=== PATIENT | female | born 1955 | race African-American/Black ===

== ENCOUNTER 2016-09-03 10:27 | Observation (INO) | payer OTHER ==
[~2016-09-03] VITALS: Ht 160 cm; Wt 78.3 kg
[~2016-09-03 10:27] MED LIST: FLEXERIL10 MG PO; LEVAQUIN750 MG PO; NAPROSYN500 MG PO; PREDNISONE10 MG PO; TRAMADOL HCL50 MG PO; VALIUM5 MG PO
[2016-09-03 11:24] LABS: EOSINOPHIL (%) 1.1 % (0-5); EOSINOPHIL COUNT 0.1 K/uL (0-0.3); HEMATOCRIT 43.2 % (36.0-46.0); IMMATURE GRANULOCYTE (%) 0.3 % (0.0-0.7); IMMATURE GRANULOCYTE COUNT 0.2 K/uL; LYMPHOCYTE COUNT 2.8 K/uL (1.0-2.8); MCH 29.5 PG (29.0-34.0); MCHC 33.1 G/DL (30.0-36.0); MCV 89.3 FL (83-99); MEAN PLAT.VOLUME 9.7 uM^3 (9.5-12.4); MONOCYTE (%) 7.4 % (3-12); MONOCYTE COUNT 0.5 K/uL (0-0.8); NEUTROPHIL COUNT 3.2 K/uL (1.8-6.4); PLATELET COUNT 250 K/uL (156-360); RBC DIS.WIDTH-CV 13.8 % (11.8-14.6); RBC DIS.WIDTH-SD 44.2 % (39-53); RED BLOOD COUNT 4.84 M/uL (3.80-5.20); WHITE BLOOD COUNT 6.5 K/uL (4.1-10.2)
[2016-09-03 11:34] LABS: CHLORIDE 110 mEq/L (99-109); POTASSIUM 4.2 mEq/L (3.7-5.4); SODIUM 141 mEq/L (136-147)
[2016-09-03 11:36] LABS: GLUCOSE 91 mg/dL (70-99)
[2016-09-03 11:37] LABS: ANION GAP 9 MEQ/L (2-14)
[2016-09-03 11:40] LABS: GFR ESTIMATE (CALCULATED) > 59 mL/min/
[2016-09-03 11:41] LABS: UREA NITROGEN (BUN) 14 mg/dL (9-23)
[2016-09-03 11:48] LABS: TROP-I INTERPRETATION NEGATIVE; TROPONIN-I < 0.01 ng/mL (0.0-0.30)
[2016-09-03] MEDS ORDERED: ALEVE220 MG PO (12:55)
[2016-09-03 15:47] VITALS: BP 143/89
[2016-09-03 18:19] LABS: TROP-I INTERPRETATION NEGATIVE; TROPONIN-I < 0.01 ng/mL (0.0-0.30)
[2016-09-03 20:00] VITALS: BP 139/77
[2016-09-04 00:01] VITALS: BP 130/68
[2016-09-04 00:56] LABS: TROP-I INTERPRETATION NEGATIVE; TROPONIN-I < 0.01 ng/mL (0.0-0.30)
[2016-09-04 05:23] VITALS: BP 125/77
[2016-09-04 05:44] LABS: FASTING STATUS NONFASTING
[2016-09-04 07:40] LABS: HDL CHOLESTEROL 48 MG/DL (Desirable>=50); LDL CHOLESTEROL 116 mg/dL (Desirable<100); NON-HDL CHOLESTEROL 170 mg/dL (Desirable<160); TOTAL CHOLESTEROL 218 mg/dL (Desirable<200); TRIGLYCERIDES 272 MG/DL (Normal: <150)
[2016-09-04 08:07] VITALS: BP 139/83
[2016-09-04 09:11] LABS: Estimated Average Glucose 111 mg/dL (70-123); HEMOGLOBIN A1c (GLYCOHEMOGLOB) 5.5 % HGB (Below 5.7)
[2016-09-04] MEDS ORDERED: NITROSTAT0.4 MG SL (10:46)
[2016-09-04] MEDS ORDERED: TYLENOL REGULA325 MG PO (10:46)
[2016-09-04] MEDS ORDERED: ATENOLOL25 MG PO (10:46)
[2016-09-04] MEDS ORDERED: ASPIR-LOW81 MG PO (10:48)
[2016-09-04] MEDS ORDERED: ATORVASTATIN CA10 MG PO (11:07)
[2016-09-04 12:22] VITALS: BP 140/73
== END 2016-09-04 13:45 | disposition home or self-care (01) ==
LOC: EME 10:27 → EDOF 13:42 → 5WEST 13:42 → EDOF 13:48 → 5WEST 14:56
PROVIDERS: Emergency Medicine; Hospitalist
DX: R07.89 Other chest pain (principal); R94.31 Abnormal electrocardiogram [ECG] [EKG]; I10 Essential (primary) hypertension; E78.2 Mixed hyperlipidemia; Z91.19 Patient's noncompliance with other medical treatment and regimen; F17.210 Nicotine dependence, cigarettes, uncomplicated
CPT/HCPCS: 71010; 80048; 80061; 83036; 84484; 85025; 85379; 85610; 85730; 93005; 99281; 99285; G0378; S0028